=== PATIENT | male | born 1955 | race Caucasian/White ===

== ENCOUNTER 2019-08-03 10:36 | Emergency (ER) | payer OTHER, SELFPAY ==
--- NOTE | ~2019-08-03 | XR_ITS ---
EXAMINATION: XR finger 1st LT min 2V DATE: 08/03/2019 11:02 INDICATION: Circular saw injury to the left thumb TECHNIQUE: Dorsal palmar, lateral and 2 oblique views of the left first digit were obtained COMPARISON: None FINDINGS: There is a deep laceration at the dorsal aspect of the mid phalanx of the left thumb which extends di stally across the bones in the soft tissues of the distal phalanx. Comminuted fractures involving the radial sided condyle at the head of the left first middle phalanx and extending from the dorsal/radi al aspect of the proximal articular surface of the distal phalanx to the plantar/ulnar aspect of the tuft. There is an additional oblique fracture extending the dorsal side of the tuft. There is approxi mately 3 mm separation of the main bone fragments fragments on either side of the path of the soft al ricardo with multiple intervening tiny bone fragments. Normal alignment and the remainder the visualized left hand. No other fractures identified. Mild osteoarthritis at the first metacarpophalangeal joint. No radiopaque foreign bodies. IMPRESSION: 1. Open/compound comminuted intra-articular fracture at the head of the left middle phalanx and exten ding across the distal interphalangeal joint space and from proximal to distal across the distal phal anx. Reviewed, dictated and finalized at location A. IMPRESSION: 1. Open/compound comminuted intra-articular fracture at the head of the left mi ddle phalanx and extending across the distal interphalangeal joint space and fr om proximal to distal across the distal phalanx.
[2019-08-03 10:48] VITALS: BP 134/84; PULSE 62; RESP 14; TEMP 36.7; O2SAT 99
--- NOTE | 2019-08-03 10:50 | ED.WOUNDLAC ---
HPI - Wound/Laceration General Chief Complaint: Wound/Laceration Stated Complaint: Lac L thumb Time Seen by Provider: 08/03/19 10:40 Source: patient Mode of arrival: ambulatory Limitations: no limitations History of Present Illness HPI narrative: Patient is a 64-year-old previously healthy male who presents for evaluation of left thumb pain. Patient was using a circular saw on a home model when the circular saw kicked back on the patient cutting his left thumb. Patient denies numbness, he reports very minimal pain. He reports some nausea after seen on the blood. Patient denies any fall or loss of consciousness. No head trauma, chest pain, shortness of breath, abdominal pain. Patient denies any pain in his wrist or elbow. He is unsure of his last tetanus. Patient is right-hand dominant. Related Data Allergies Allergy/AdvReac Type Severity Reaction Status Date / Time Penicillins Allergy Unknown Verified 08/03/19 11:10 Review of Systems Review of Systems: Narrative: CONSTITUTIONAL: Denies fever CARDIOVASCULAR: Denies chest pain RESPIRATORY: Denies cough or dyspnea. GASTROINTESTINAL: Denies abdominal pain SKIN: Denies rash MUSCULOSKELETAL: Denies back pain NEUROLOGIC: Denies headache [facility] Past Medical History Medical History (Updated 08/03/19 @ 13:17 by Geraldine Donohue MD) No pertinent past medical history Exam Narrative: Exam Narrative: GENERAL: Awake, alert, conversant, diaphoretic HEAD: Normocephalic, atraumatic. EYES: PERRLA and EOMI. ENT: Nares clear, no rhinorrhea or epistaxis. Mucous membranes moist. NECK: Supple. CHEST: No respiratory distress, breathing even and non labored HEART: Regular rate, sinus rhythm ABDOMEN:Non distended, non tender, patient nauseated, retching while in the room EXTREMITIES: Deformity with complex spiral laceration to the left thumb. Full-thickness laceration present. There is a subungual hematoma on the left nail. Intact distal sensation radial nerve distribution. Radial pulses 2+. Intact sensation median ulnar nerve distribution. No pain at the wrist or elbow. Capillary refill is less than 3 seconds in the left thumb. It is warm and well-perfused. Minimal active bleeding. No pulsatile bleeding. SKIN: Warm, dry, no rash. NEURO:No focal deficits. Alert and oriented x3 Course Vital Signs Vital signs: Vital Signs Temperature 36.7 C 08/03/19 10:48 Pulse Rate 62 08/03/19 10:48 Respiratory Rate 14 08/03/19 10:48 Blood Pressure 134/84 08/03/19 10:48 Pulse Oximetry 99 08/03/19 10:48 Temperature 36.7 C 08/03/19 10:48 Pulse Rate 62 08/03/19 10:48 Respiratory Rate 14 08/03/19 10:48 Blood Pressure 134/84 08/03/19 10:48 Pulse Oximetry 99 08/03/19 10:48 MDM - Wound/Laceration MDM Narrative Medical decision making narrative: Patient presented for evaluation of injury to left thumb from a circular saw. Patient is neurovascularly intact. He has intact flexion, extension seems mildly limited, but good range of motion without evidence of foreign body. The wound was clean, tetanus was updated, he was given IV antibiotics for open fracture. X-ray reveals complicated fracture and laceration, plastic surgery was consulted and this was repaired in the emergency department. Dr. Phillip did not recommend any at home antibiotics. Patient will be discharged home with pain medication and has follow-up with Dr. Phillip on Tuesday of next week. Differential Diagnosis Differential diagnosis: Likely laceration, avulsion of skin and other (Tendon injury, Fracture) Imaging Data Radiologist's impression: ITS Impressions Finger X-Ray 08/03/19 11:06 IMPRESSION: 1. Open/compound comminuted intra-articular fracture at the head of the left middle phalanx and extending across the distal interphalangeal joint space and from proximal to distal across the distal phalanx. Discharge Plan Discharge Clinical Impression: Laceration Open fracture of p
[2019-08-03] MEDS: ONDANSETRON HCL ODT 4 MG TABLET (10:52)
--- NOTE | 2019-08-03 10:52 | PC.NURSE ---
Pt. actively vomiting while cleaning Pt. wound. Per EDP via verbal order readback give 4mg PO zofran.
[2019-08-03] MEDS: ceFAZolin SODIUM 1 GM VIAL IV PUSH (11:04)
[2019-08-03] MEDS: MORPHINE SULFATE 2 MG/ML INJ IV PUSH (11:38)
[2019-08-03] MEDS: SODIUM CHLORIDE 0.9% IV 1,000 ML 999 ML IV CONT (11:38)
[2019-08-03] MEDS: TETANUS,DIPHTHERIA,AC PERTUSSIS ADULT (0.5 ML) BOOSTRIX IM (11:39)
[2019-08-03] MEDS: WATER, STERILE FOR INJECTION 10 ML VIAL XX (11:39)
[2019-08-03 13:26] VITALS: BP 137/67; PULSE 65; RESP 16; O2SAT 99
--- NOTE | 2019-08-03 17:43 | OP_ITS ---
DATE OF PROCEDURE: 08/03/2019 POINT OF SERVICE: [facility] Emergency Room PREOPERATIVE DIAGNOSIS: Partial amputation of the left thumb with open fracture, nail involvement, ligament, tendon and nerve injuries. POSTOPERATIVE DIAGNOSIS: Partial amputation of the left thumb with open fracture, nail involvement, ligament, tendon and nerve injuries. OPERATION PERFORMED: Complex repair of the partial amputation of the left thumb with repair of nail bed and reduction of fracture 6 cm. 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 He has never had a significant injury. Today, the saw went through his left thumb near the IP joint, lacerating the radial digital nerve destroying the collateral ligaments on the radial aspect, dividing much of the extensor tendon exiting diagonally across the nail and nail bed resulting in a comminuted fracture of the distal phalanx. The fracture also extends to the proximal phalanx and part of the articular surface is disrupted. The x-rays were reviewed before I went to see the patient. The thumb had already been numbed and cleansed. The patient had received his Tdap and IV Ancef. He has an allergy to penicillin. He takes no other chronic medications. I was able to block the digit with 1% lidocaine with epinephrine. It was prepped and draped in usual fashion. A blue tourniquet was placed across the base of the thumb. There were a couple of separate lacerations in that region, but did not require exploration. We examined this very carefully, found the digital nerve on the radial volar aspect divided. Certainly, the dorsal radial digital nerve was also divided. The thumb lay in abduction at the interphalangeal joint. I was able to identify the extensor tendon however, and this thumb could be reduced to an anatomical position. The tendon had a strong tendency to pull ulnarly out of that position. We eventually stabilized that was sutures in the skin. The nail bed was split throughout its length. However, nail bed was in good condition and we were able to repair nail bed with interrupted 5-0 Vicryl suture. The flexor tendon was intact. The extensor tendon was examined to some extent, but I was not able to improve upon the amount of tendon crossing the joint, it having been cut obliquely. When it appeared that there was adequate tendon for extension, then I did address that further at this time. The spiraling laceration was closed with interrupted running 4-0 nylon and the soft tissue actually came together very well. A bulky bandage with dorsal Alumafoam splint was applied. The splint is set so that it resists ulnar deviation of the interphalangeal joint due to the extensor tendon. The patient is made aware that this repair today is a partial correction of his problems and we want to evaluate him in the near future to determine whether what other deficits he has anticipating that the part of that will require evaluation with other x-rays and examination for sensation and eventually extension and stability of the interphalangeal joint. He is discharged to home with no prescription for antibiotics, but prescription for pain control and recommendations for followup with me. D I MT: Tia
== END 2019-08-03 13:39 | disposition home or self-care (01) ==
PROVIDERS: Emergency Provider Emergency Medicine; PCP Internal Medicine
DX: S62.522B Displaced fracture of distal phalanx of left thumb, initial encounter for open fracture (principal); S62.512B Displaced fracture of proximal phalanx of left thumb, initial encounter for open fracture; Z23 Encounter for immunization; W31.2XXA Contact with powered woodworking and forming machines, initial encounter
CPT/HCPCS: 11760; 26725; 26755; 73140; 90471; 90715; 96361; 96374; 96375; 99284; A9270; J0690; J2270; J7030

== ENCOUNTER 2019-08-07 15:41 | Outpatient (CLI) | payer OTHER, SELFPAY ==
--- NOTE | ~2019-08-07 | XR_ITS ---
EXAMINATION: XR finger 1st LT min 2V EXAM DATE: 08/07/2019 16:07 INDICATION: Status post reduction. TECHNIQUE: Left thumb frontal, lateral and oblique projections obtained and reviewed. Comparison is made to prior examination from 08/03/2019. FINDINGS: Acute comminuted fracture of the left distal phalanx has been reduced, and a splint has be en applied. There is a few millimeters distraction between the main fracture fragments. Distal phalan x is in position. There are fracture lines extending into the interphalangeal joint. There is also ac sirisha proximal phalangeal head fracture with about 2 mm of distraction. IMPRESSION: Status post reduction, splinting left 1st distal and proximal phalangeal fractures. Reviewed, dictated and finalized at location B. IMPRESSION: Status post reduction, splinting left 1st distal and proximal phal angeal fractures.
== END 2019-08-07 15:42 | disposition home or self-care (01) ==
LOC: ANHIMG 15:47
PROVIDERS: PCP Internal Medicine; Visit Provider Plastic Surgery
DX: S62.511A Displaced fracture of proximal phalanx of right thumb, initial encounter for closed fracture (principal); S62.522A Displaced fracture of distal phalanx of left thumb, initial encounter for closed fracture; Z98.890 Other specified postprocedural states
CPT/HCPCS: 73140

== ENCOUNTER 2019-08-21 11:34 | Outpatient (CLI) | payer OTHER, SELFPAY ==
--- NOTE | ~2019-08-21 | XR_ITS ---
XR finger 1st LT min 2V DATE: 08/21/2019 11:58 INDICATION: Fracture follow-up; circular saw injury TECHNIQUE: 4 views COMPARISON: 08/07/2019 FINDINGS: There is an intra-articular comminuted fracture of the base, shaft and tuft of the distal p halanx. There is mild separation of the fracture fragments but otherwise no significant displacement or angulation deformity. There is a linear intra-articular fracture of the head of the proximal phalanx as well. Fracture lines are less lucent compared to 08/07/2019, consistent with some interval healing new bone formation IMPRESSION: Healing fractures of the proximal and distal phalanges Reviewed, dictated and finalized at location A.
== END 2019-08-21 11:35 | disposition home or self-care (01) ==
LOC: ANHIMG 11:37
PROVIDERS: PCP Internal Medicine; Visit Provider Plastic Surgery
DX: S62.512D Displaced fracture of proximal phalanx of left thumb, subsequent encounter for fracture with routine healing (principal); S62.522D Displaced fracture of distal phalanx of left thumb, subsequent encounter for fracture with routine healing; X58.XXXD Exposure to other specified factors, subsequent encounter
CPT/HCPCS: 73140

== ENCOUNTER 2019-09-11 01:22 | Outpatient (CLI) | payer OTHER, SELFPAY ==
[2019-09-11 19:35] LABS: SARS-CoV-2 RNA PCR Negative
== END 2019-09-11 01:23 | disposition home or self-care (01) ==
LOC: ANHCOVIDDT 01:22
PROVIDERS: PCP Internal Medicine; Visit Provider Plastic Surgery
DX: Z01.812 Encounter for preprocedural laboratory examination (principal); Z11.59 Encounter for screening for other viral diseases
CPT/HCPCS: 87635; C9803; U0003

== ENCOUNTER 2019-09-13 01:37 | Day surgery (SDC) | payer OTHER, SELFPAY ==
[2019-08-31 14:58] VITALS: BMI 31.0
--- NOTE | 2019-09-12 19:56 | HP_ITS ---
DATE OF SERVICE: 09/13/2019 DIAGNOSIS: Displaced fracture, left thumb proximal and distal phalanges. HISTORY: The patient is 64. He was seen by me at [facility] on 08/03/2019, for left thumb injury sustained when a saw went through his left thumb near the IP joint, lacerating the radial digital nerve, destroying the collateral ligaments on the radial aspect divided much of the extensor tendon exiting diagonally across the nail resulting in comminuted fractures of the distal phalanx and proximal phalanx. His wounds were cleansed and closed the night of the injury in the emergency room by me. He has gone on to heal the soft tissue satisfactorily. He has still ununited fractures and instability of the IP joint. He is brought in at this time to try to repair the fractures and create stability of the interphalangeal joint. He is aware that a stiff joint is a sure outcome, although there may be some ability to use fully flex at the IP joint. Infection is a possibility with this surgery and further surgeries or even amputation might be necessary. Sensory problems that he has now cannot be improved upon surgically and he would like to proceed. PAST MEDICAL HISTORY: ALLERGIES: HE HAS AN ALLERGY TO PENICILLIN. REVIEW OF SYSTEMS: He takes no medicine on a regular basis. He has had no other surgeries. Sees no specialist for any reason. He is a nonsmoker. He said that he had a fever for a couple days on his visit to my office on 08/07/2019. FAMILY HISTORY: Noncontributory. SOCIAL HISTORY: He lives in [place]. He works for [employer]. He is to [facility]. He is a patient of Dr. Tyrone Guzman. PHYSICAL EXAMINATION: GENERAL: He is a very pleasant gentleman appearing his age of 64. He is 5 feet 8 inches, weight 210 pounds. He is cooperative. HEENT: Unremarkable. CHEST: Clear to auscultation. HEART: Regular rate and rhythm by palpation. ABDOMEN: Soft, nontender. EXTREMITIES: Appear normal with exception of the thumb, which has some instability at the IP joint, making it of little use to him. Most of the soft tissue was well healed. There is some nail deformity. DIAGNOSIS: Non-healed fractures of the distal and proximal phalanges of the right thumb with joint instability. PLAN: Exploration and a delayed ORIF of fractures of the distal and proximal phalanges under MAC anesthetic. D I MT: Tia
[2019-09-13] VITALS (8 sets, daily range): BP systolic 99–153; BP diastolic 68–100; PULSE 54–61; RESP 11–18; TEMP 36–36.2; O2SAT 96–100
--- NOTE | ~2019-09-13 | XR_ITS ---
EXAMINATION: XR surgery orthopedic DATE: 09/13/2019 10:33 INDICATION: Displaced left thumb fracture of the proximal and distal phalanges TECHNIQUE: Dorsal plantar and lateral fluoroscopic spot images of the left thumb were obtained during procedure performed by Dr. Phillip. Radiologist was not present for the imaging or procedure. The [facility] nt of fluoroscopy time used during this procedure was 0.4 minutes. COMPARISON: 08/21/2019 FINDINGS: No significant change in alignment of the visualized portion of the comminuted intra-articular fractu re of the left first distal phalanx. The distal aspect of the distal phalanx is excluded from the fie ld-of-view. Intra-articular fracture of the distal aspect of the first proximal phalanx. Small screw possibly a suture anchor is present at the head of the proximal phalanx. Mild osteoarthritis at the f irst metacarpophalangeal and interphalangeal joints. Expected small amount of gas is seen is the soft tissues at the operative bed. IMPRESSION: 1. Interval placement of a screw possibly a suture anchor at the head of the left first proximal phal anx. See procedure note for further detail. 2. Fractures of the left first proximal and distal phalanges both involving the articular surfaces at the interphalangeal joint. Reviewed, dictated and finalized at location A. IMPRESSION: 1. Interval placement of a screw possibly a suture anchor at the head of the le ft first proximal phalanx. See procedure note for further detail. 2. Fractures of the left first proximal and distal phalanges both involving the articular surfaces at the interphalangeal joint.
[2019-09-13] MEDS: LACTATED RINGERS 1,000 ML 30 ML IV CONT ×2 (08:03→10:44)
--- NOTE | 2019-09-13 08:59 | P.PNAN_ITS ---
Anes - Initial Pre Proc Eval Procedure: Operation Date: 09/13/19 09:30 Proposed Procedures p Delayed Repair Of Displaced Fractures Of Proximal and Distal Left Thumb - Russell Phillip MD Date/Time: 09/13/19 08:59 Surgeon: Russell Phillip MD Pre Op Diagnosis: Fractures Proximal and Distal Phalanges Patient Data Age: 64 Gender: M Height: 5 ft 9 in Weight: 91.5 kg Last Vital Signs Temp 36.2 C L 09/13/19 08:31 Pulse 56 L 09/13/19 08:31 BP 152/96 H 09/13/19 08:31 Pulse Ox 97 09/13/19 08:31 Allergies Allergy/AdvReac Type Severity Reaction Status Date / Time Penicillins Allergy Unknown- Verified 08/31/19 14:59 Childhood allergy Home Medications Medication Instructions Recorded Confirmed Type No Home Medications 08/31/19 08/31/19 History Patient hx anesthesia problems: none Family hx anesthesia problems: none [facility] Past Medical History Medical History (Updated 09/13/19 @ 09:00 by Ahmet Jacobo MD) Overweight Thumb fracture Social History Social History Smoking status: Never smoker Spiritual care concerns: No Anes - Eval Final PreProcedure Day of Procedure 09/13/19 08:59 Patient weight: overweight Heart: regular rate and rhythm Lungs: clear to auscultation Airway: Mallampati scale class II Neurological: alert and oriented Last oral intake: >/= 8 hours ASA classification: II Emergent: no Anesthetic plan: proceed Anesthesia type and monitoring: general GIVS and standard monitoring Informed Consent: The patient's anesthetic plan and its attendant risks and benefits were discussed with the patient/family/POA. Questions were solicited and answers provided to the satisfaction of the patient/family/POA.
--- NOTE | 2019-09-13 09:19 | WPDHPUPDATE1 ---
History and Physical Update Update Date/Time: 09/13/19 09:19 History and Physical has been reviewed, including an updated exam of the patient. There are NO changes in the patient's condition. Risks, benefits, and alternatives have been discussed and questions answered. Patient agrees to proceed with procedure.
[2019-09-13] MEDS: ceFAZolin 2 GM/D5W 50 ML 2 GM/50 ML BAG IVPB (09:23)
[2019-09-13] MEDS: LIDO 1%/EPINEPHRINE 1:100,000 20 ML VIAL INFILTRATE (09:23)
--- NOTE | 2019-09-13 11:04 | PM.OP ---
Procedure Note - Brief Procedure Note - Brief Date of procedure: 09/13/19 Pre-op diagnosis: Fractures Proximal and Distal Phalanges Post-op diagnosis: other (Fractures of prosimal and distal phalanges and radial collateral ligament injury, left thumb.) Procedure performed: Extensor tenolysis and reconstruction of the radial collateral ligament left thumb. Anesthesia: GLMA Surgeon: Russell Phillip MD Boiler Control Room Operator: Kandace Estimated blood loss (mL): 2 Tourniquet time (min): 30 Packing: No Pathology: none sent Complications: No immediate complications Condition: stable Disposition: PACU
--- NOTE | 2019-09-13 12:03 | SUR.PHASEII ---
1142; PT INTO OPR PER STRETCHER. WALKED TO BATHROOM UPON ARRIVAL. GAIT STEADY. VOIDED. 1150; PT IN RECLINER. DENIES PAIN OR NAUSEA. DRINKING SODA.
--- NOTE | 2019-09-13 12:31 | PM.PROC ---
Procedure Note - Detailed Date of procedure: 09/13/19 Pre-op diagnosis: Fractures Proximal and Distal Phalanges Fracture of the proximal and distal phalanges and disruption of the radial collateral ligament of the left thumb Post-op diagnosis: same Procedure performed: Extensor tenolysis and reconstruction of radial collateral ligament to the IP joint of the left thumb Description of procedure: The thumb was marked in the holding area. The patient was taken to the operating room and placed supine on the operating table. A time-out was held and confirmed. He was given general anesthesia. Extremity was prepped and draped in usual fashion. The thumb was carefully examined. We find approximately 5? of passive IP joint range of motion. And there is moderate lateral instability and both directions. The C-arm was brought in and images were made of the fracture condition. The base of the distal phalanx is split in the midline although displacement seems to be limited to distraction rather other alignment. Under general anesthesia I was able to manipulate this and it feels stable. The proximal phalanx also seems stable. The concern we had for a large proximally displaced radial articular surface was found on live inspection to be less significant. The articular surface on both bones is congruent. The fragment that seem proximally displaced actually comprises some of the dorsal aspect of this bone and probably is less important than I had thought it might be. The radial collateral ligament was found to be attached distally and lost into scar proximally and not serving its function well. The small 3 mm fragment of head of the proximal phalanx was removed at that point. It did not appear to hold any articular surface on at . That side and the entire radial end of the proximal phalanx was scraped free of soft tissue and the collateral ligament remnant was mobilized into that area. An Arthrex screw anchor was used to fix that. The C-wire guide hole was made. This was followed by the small screw anchor. Two ends of the suture were passed through the radial collateral ligament then and tightened. This provided improved stability and allowed the range of motion mentioned above. In the process of exploring all of this, the extensor tendon was freed at and across the interphalangeal joint and on both sides where dense scar had formed. This permitted passive flexion and extension of approximately 60?, a marked improvement. No additional reconstructive work was done. The skin was closed with 4-0 nylon. A bulky bandage with the dorsal Alumafoam splint was applied. This patient had received 2 g of Ancef preop. He was discharged home with some hydrocodone 5/325 to augment some he has left over from the prior case. He has instructions in wound care and follow-up. Surgeon: Russell Phillip MD
--- NOTE | 2019-09-13 13:50 | SUR.PHASEII ---
1245; PT AWAKE AND ALERT. DENIES PAIN OR NAUSEA. STATES READY TO GO HOME. MEETS DISCHARGE CRITERIA. 1253; WALKED TO BATHROOM. GAIT STEADY. VOIDED.
== END 2019-09-13 12:55 | disposition home or self-care (01) ==
PROVIDERS: PCP Internal Medicine; Visit Provider Plastic Surgery
PROC: (CPT 26910; principal; 2019-09-13 09:30)
DX: S62.522A Displaced fracture of distal phalanx of left thumb, initial encounter for closed fracture (principal); S62.512A Displaced fracture of proximal phalanx of left thumb, initial encounter for closed fracture; S63.642A Sprain of metacarpophalangeal joint of left thumb, initial encounter; W31.2XXA Contact with powered woodworking and forming machines, initial encounter
CPT/HCPCS: 26440; 26540; A9270; J0690; J1100; J2001; J2250; J2405; J2704; J3010; J7120

== ENCOUNTER 2020-12-19 16:06 | Outpatient (CLI) | payer OTHER, SELFPAY ==
--- NOTE | ~2020-12-19 | XR_ITS ---
EXAMINATION: XR finger 1st LT min 2V DATE: 12/19/2020 16:29 INDICATION: Open sore of left thumb. TECHNIQUE: 3 views of left thumb were obtained. COMPARISON: Left thumb radiographs 09/13/2019, 08/21/2019, 08/03/2019 FINDINGS: Bone alignment is normal. There is an old healed fracture deformity of first distal phalanx . There is a small screw at radial aspect of head of first proximal phalanx. There is osteolysis of t he bone around the screw. There is soft tissue swelling overlying this area. There is mild osteoarthr itis of first carpometacarpal joint and first metacarpophalangeal joint. There is moderate shift post traumatic osteoarthritis of first interphalangeal joint. IMPRESSION: 1. Small screw at radial aspect of first proximal phalanx with osteolysis of the bone around the scre w and overlying soft tissue swelling, consistent with osteomyelitis. 2. Polyarticular osteoarthritis. Reviewed, dictated and finalized at location A. CAR DISPATCHER IMPRESSION: 1. Small screw at radial aspect of first proximal phalanx with osteolysis of th e bone around the screw and overlying soft tissue swelling, consistent with ost eomyelitis. 2. Polyarticular osteoarthritis.
== END 2020-12-19 16:07 | disposition home or self-care (01) ==
LOC: ANHIMG 16:10
PROVIDERS: PCP Internal Medicine; Visit Provider Plastic Surgery
DX: S61.002A Unspecified open wound of left thumb without damage to nail, initial encounter (principal); M19.042 Primary osteoarthritis, left hand
CPT/HCPCS: 73140

== ENCOUNTER 2021-02-10 09:27 | Outpatient (CLI) | payer OTHER, SELFPAY ==
--- NOTE | ~2021-02-10 | XR_ITS ---
EXAMINATION: XR finger 1st LT min 2V DATE: 02/10/2021 09:53 INDICATION: Osteomyelitis with loosening of a fixation screw at the left first proximal phalanx TECHNIQUE: Dorsal palmar, lateral and 2 oblique views of the left fourth digit were obtained COMPARISON: 12/19/2020 and 08/03/2019 FINDINGS: Bone alignment is normal. Mild deformity along the radial side of the base of the first distal phalan x and at the radial head of the proximal phalanx related to old healed fracture reportedly related to a circular saw. Again seen is a screw at the radial side of the head of the first proximal phalanx w ith no interval change in associated cortical erosion with lucency with sclerotic margins surrounding the tip of the likely loose screw. No progressive osteolysis. No interval change in mild nonuniform joint space narrowing at the first interphalangeal joint consistent with secondary osteoarthritis. Ad ditional mild osteoarthritis at the first carpometacarpal and metacarpophalangeal joints. IMPRESSION: 1. Stable appearance of lucency and lucency consistent with erosion with sclerotic margins surroundin g the tip of a likely loose fixation screw at the radial aspect of the head of the first distal phala nx consistent with chronic osteomyelitis. No new osteolysis to suggest ongoing progressive osteomyeli tis. 2. Mild polyarticular osteoarthritis in the first carpometacarpal, metacarpal phalangeal and interpha langeal joints with no progressive joint space narrowing at the interphalangeal joint to suggest sept ic arthritis. Reviewed, dictated and finalized at location B. DIRECTOR IMPRESSION: 1. Stable appearance of lucency and lucency consistent with erosion with sclero tic margins surrounding the tip of a likely loose fixation screw at the radial aspect of the head of the first distal phalanx consistent with chronic osteomye litis. No new osteolysis to suggest ongoing progressive osteomyelitis. 2. Mild polyarticular osteoarthritis in the first carpometacarpal, metacarpal p halangeal and interphalangeal joints with no progressive joint space narrowing at the interphalangeal joint to suggest septic arthritis.
== END 2021-02-10 09:28 | disposition home or self-care (01) ==
LOC: ANHIMG 09:31
PROVIDERS: PCP Internal Medicine; Visit Provider Plastic Surgery
DX: M86.142 Other acute osteomyelitis, left hand (principal); M19.042 Primary osteoarthritis, left hand
CPT/HCPCS: 73140

== ENCOUNTER 2021-04-30 11:43 | Outpatient (CLI) | payer OTHER, SELFPAY ==
--- NOTE | ~2021-04-30 | XR_ITS ---
EXAMINATION: XR finger 1st LT min 2V EXAM DATE: 04/30/2021 12:05 INDICATION: R/O Osteomyelitis, Recent Screw Removal From Old Fx. TECHNIQUE: Left 1st finger frontal, lateral and oblique projections obtained and reviewed. Compariso n is made to prior examination from 02/10/2021. FINDINGS: Previously seen screw tip along the left 1st proximal phalangeal head has been removed. Th e surrounding erosion within the laryngeal head is unchanged in size, but has more well-defined jose ns suspected consistent with some amount of healing. Is no evidence of acute erosive change, no evide nce of active osteomyelitis. There are no acute fractures identified. IMPRESSION: Left 1st proximal phalangeal head erosion with better defined margin. No evidence of act miriam osteomyelitis but follow-up recommended if indicated clinically. Reviewed, dictated and finalized at location G. IMPRESSION: Left 1st proximal phalangeal head erosion with better defined miller in. No evidence of active osteomyelitis but follow-up recommended if indicated clinically.
== END 2021-04-30 11:44 | disposition home or self-care (01) ==
LOC: ANHIMG 11:48
PROVIDERS: PCP Internal Medicine; Visit Provider Plastic Surgery
DX: M86.142 Other acute osteomyelitis, left hand (principal)
CPT/HCPCS: 73140